=== PATIENT | male | born 1945 | race Caucasian/White ===

== ENCOUNTER → 2025-01-31 08:59 | Outpatient (CLI) | payer MEDICARE, OTHER, SELFPAY ==
--- NOTE | 2025-01-31 09:02 | DI.RAD.S_ITS ---
PROCEDURE: XR FOOT RT MIN 3V INDICATIONS: swelling TECHNIQUE: 3 views of the foot were acquired. COMPARISON: None. FINDINGS: Bones: Moderate pes cavus and hammertoe deformities 1st through 5th digits appreciated. 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 Joints: Mild degeneration in the 1st MTP and the 2nd through 5th interphalangeal joints. Soft tissues: A 6 mm linear calcification is seen in the posterior periarticular soft tissues is the talocalcaneal joint mild diffuse soft tissue swelling IMPRESSION: Mild diffuse soft tissue swelling and Chronic findings as described Dictated by: Mikey Parikh M.D. on 02/01/2025 at 10:53 Approved by: Mikey Parikh M.D. on 02/01/2025 at 10:54
--- NOTE | 2025-01-31 09:02 | DI.RAD.S_ITS ---
PROCEDURE: XR ANKLE RT MIN 3V INDICATIONS: swelling TECHNIQUE: 3 views of the ankle were acquired. COMPARISON: None. FINDINGS: Bones: Minimal medial malleolar deformity likely represents is subtotally unified subacute or chronic fracture. Tibiotalar and talocalcaneal joints: Normal in width and alignment without arthritic change. Soft tissues: Moderate diffuse soft tissue swelling. IMPRESSION: Subtotally unified medial malleolar fracture. Dictated by: Mikey Parikh M.D. on 02/01/2025 at 10:51 Approved by: Mikey Parikh M.D. on 02/01/2025 at 10:52
[2025-01-31 10:33] LABS: Add Manual Diff / Slide Review NO; Hematocrit 41.5 % (41-53); Hemoglobin 13.8 g/dL (13.5-17.5); Lymphocytes Absolute Auto 1300 /uL (1100-4500); Mean Corpuscular HGB Conc 33.2 % (30-36); Mean Corpuscular Hemoglobin 27.1 PG (26-34); Mean Corpuscular Volume 81.8 fL (80-100); Platelet Count 240 X10^3/uL (150-400)
[2025-01-31 10:38] LABS: Hemoglobin A1C% w Est Avg Glu 5.7 % (4.0-6.0)
[2025-01-31 10:51] LABS: Alanine Aminotransferase 22 IU/L (<50); Albumin 4.3 g/dL (3.5-5.0); Albumin Globulin Ratio 1.8 (1.0-2.8); Alkaline Phosphatase 52 U/L (38-126); Blood Urea Nitrogen 22 mg/dL (9-20); Calcium 9.6 mg/dL (8.4-10.2); Carbon Dioxide 25 mmol/L (22-32); Chloride 105 mmol/L (98-107); Cholesterol 260 mg/dL (140-199); Estimated Glomerular Filt Rate > 60 mL/min (>60); Globulin 2.4 g/dL (1.7-4.1); Glucose 106 mg/dL (70-99); HDL Cholesterol 70 mg/dL (40-60); HEMOLYSIS < 15 (0-50); Potassium 4.4 mmol/L (3.4-5.1); Sodium 138 mmol/L (137-145); Total Protein 6.7 g/dL (6.3-8.2); Triglycerides 67 mg/dL (35-150); VLDL Cholesterol Calculated 13 mg/dL (2-30)
[2025-01-31 11:21] LABS: TSH w/ Reflex to FT4 2.14 uIU/mL (0.47-4.68)
== END ==
PROVIDERS: PCP Family Medicine; Referring Provider Physician Assistant; Visit Provider Physician Assistant
DX: M19.071 Primary osteoarthritis, right ankle and foot (principal); S82.51XS Displaced fracture of medial malleolus of right tibia, sequela; M20.41 Other hammer toe(s) (acquired), right foot; M21.6X1 Other acquired deformities of right foot; M25.473 Effusion, unspecified ankle; R53.83 Other fatigue; M79.89 Other specified soft tissue disorders
CPT/HCPCS: 36415; 73610; 73630; 80053; 80061; 83036; 84443; 85025